=== PATIENT | female | born 1960 | race Caucasian/White ===

== ENCOUNTER 2016-09-18 08:00 | Day surgery (SDC) | payer BC ==
[~2016-09-18 08:00] MED LIST: Lactated Ringers 1,000 ML IV SCH; Simethicone Drops 40 MG/0.6 ML 30 ML Bottle ONE
[2016-09-18] MEDS ORDERED: Simethicone Drops 40 MG/0.6 ML 30 ML Bottle ONE (08:50)
[2016-09-18] MEDS ORDERED: Propofol 200 MG/20 ML SDV ONE ×2 (09:19→09:20)
[2016-09-18 11:26] VITALS: BP 128/94
--- NOTE | 2016-09-18 12:51 | HP ---
CHIEF COMPLAINT: Intermittent constipation and diarrhea. HISTORY OF PRESENT ILLNESS: Ms. Yanci Herr is a 56-year-old female, who I evaluated in June for intermittent, some lower abdominal pain and some constipation mixed with diarrhea. This has been going on for some time. We had planned to do a colonoscopy earlier, but she had several months where she had some upper respiratory tract infection. She now is healthy. Since I saw her in June, she states that she has had no additional change to her current medication list which includes Wellbutrin, omeprazole, estrogen, erythromycin, some gels, loratadine, and MiraLax. She has also had no change in these episodes and she at no time has had bloody stools. Significant in her history is she has had multiple abdominal procedures to include 2 laparoscopies for endometriosis, a cholecystectomy, total abdominal hysterectomy, and she had an umbilical hernia repair which resulted in a bowel resection. Of note, I reviewed the CT scan, it appears that this was small- bowel as her colon appears to be totally intact. SOCIAL HISTORY: No change. REVIEW OF SYSTEMS: She has had no upper respiratory tract infection now for a month. She states that she has had no history of cardiac disease, chest pain. She has had no change in abdominal pain other than what I described in my HPI. No history of DVT or bleeding problems since I saw her. PHYSICAL EXAMINATION: General: GCS is 15. HEENT: Pupils equal. Neck: Without mass. Lungs: Clear. Heart: Rhythm is regular. Abdomen: Soft. Ankles: Free of edema. IMPRESSION AND PLAN: Indeed this patient is a candidate for colonoscopy. I clearly discussed the risks to include, but not limited to bleeding, infection, heart attack, , injury to structures not intended, specifically perforating the bowel. She is well aware of that risk as that happened to her father when he had his colonoscopy. We also discussed a complete colonoscopy, it entails that we get completely to the right side due to the fact that she has had multiple previous surgeries and pelvic surgeries as well as 4 pregnancies. There is higher risk that we could not be successful in that, if we are not, I stated that we could proceed to a barium enema. She understands these risks and benefits and wishes to proceed. All questions were answered and she understands that for the rest of that day she should not engage in any sort of business transactions or driving. [facility] /[id number]
--- NOTE | 2016-09-18 13:49 | OR ---
DATE: 09/18/2016 PREOPERATIVE DIAGNOSIS: Intermittent constipation and diarrhea, but no bloody stool. POSTOPERATIVE DIAGNOSIS: Tortuous left colon with hemorrhagic cyst, 3 cm area on the right colon, probably in the upper. PROCEDURE: Colonoscopy with biopsy of the hemorrhagic area. ANESTHESIA: IV sedation. COMPLICATIONS DURING THE PROCEDURE: The patient had an episode of vigorous coughing to the point where we almost had to abort the procedure, but with some additional anesthesia and oxygen, we continued with some intermittent additional coughing. The patient was brought to the operating room. IV sedation was begun and a time- out was performed. She was placed on her left side down. On perianal exam, she does have a single, non ulcerated skin tag. Rectal exam, there was no mass. I then began the process of passing the scope and clearly, she has a very tortuous colon which was documented in her previous colonoscopies. There was probably 4 or 5 different right angle turns in order to get the scope into the transverse colon. Interesting enough, when I got into the transverse colon which took a bit of time, she had a vigorous coughing spell such that we almost had to abort. Additional sedation was begun and I must say, I saw this suspicious area of an ulcerated lesion and as I am looking at my pictures here, it is concerning. What I simply did was did a biopsy of this area only. With some difficulty, I got to the ileocecal valve and again, this looked okay, it was just that 1 spot. Now having said that, I believe, I am not going to say I am 100% sure that is the spot that I biopsied, but there was I did biopsy a spot similar and that I think that is the only one. On retracting the scope the rest of the way, I did not see any other polyps or pathology. The plan will be I want to see her when I come back for the biopsy of the specimen. Because now on looking at pictures, it looks a little more suspicious. For sure, she is going to need a repeat colonoscopy within 6 months depending no matter what that polyp is, because again I do not really liked how this thing looked. I will discuss this and show the pictures with the family and go from there. She tolerated the procedure moderately well. The bowel prep was good. [facility] /[id number]
[2016-09-18] MEDS ORDERED: Propofol 200 MG/20 ML SDV IV ONE (14:26)
[2016-09-18] MEDS ORDERED: Lidocaine 1% 30 ML SDV INJECT ONE (14:27)
[2016-09-18] MEDS ORDERED: Ondansetron 4 MG/2 ML SDV IV ONE (14:27)
[2016-09-18] MEDS ORDERED: Lactated Ringers 1,000 ML IV ONE (14:27)
== END 2016-09-18 11:30 | disposition home or self-care (01) ==
LOC: DL.ENDO 08:00
PROVIDERS: ATTEND Surgery
DX: R23.3 Spontaneous ecchymoses (principal); Z88.0 Allergy status to penicillin; Z88.1 Allergy status to other antibiotic agents; Z88.2 Allergy status to sulfonamides; Z88.8 Allergy status to other drugs, medicaments and biological substances
CPT/HCPCS: 45380; A9270; J2405; J2704; J7120

== ENCOUNTER 2016-11-14 16:04 | Emergency (ER) | payer BC ==
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
[2016-11-14] MEDS ORDERED: Iopamidol 612 MG/ML 100 ML Bottle IVPUSH ONE (16:19)
[2016-11-14 16:20] VITALS: BP 155/81
[2016-11-14] MEDS ORDERED: Ondansetron 4 MG/2 ML SDV IV ONE ×2 (16:20→19:08)
[2016-11-14] MEDS ORDERED: Sodium Chloride 0.9% 1,000 ML IV ONE (16:20)
[2016-11-14] MEDS ORDERED: HYDROmorphone 1 MG/ML Syringe IVPUSH ONE ×2 (16:20→19:08)
[2016-11-14] MEDS: Sodium Chloride 0.9% 10 ML Syringe FLUSH PRN ×2 (16:35→19:41)
[2016-11-14 16:53] LABS: CHLORIDE,CL 103 mmol/L (101-111); SODIUM,NA 136 mmol/L (135-145)
--- NOTE | 2016-11-14 18:03 | CT ---
Clinical history: 56-year-old female abdominal pain associated with colonoscopy (one week ago). Prev ious hysterectomy surgery this patient who presented at the emergency department with "much worse" a bdominal pain today. Scan technique: Volume acquisition of data emergency CT scan abdomen and pelvis obtained without ora l contrast but during the intravenous administration 100 cc nonionic Isovue contrast while patient w as lying supine on the Siemens multi slice CT scanner [facility]. All data archived in the PACS system for storage, reformatting and study. Interpretation: 1. *Fluid-filled loops of small intestine line with a few scattered air-fluid levels indicating alexei roenteritis or early SBO. 2. No sign of colonic perforation, mechanical large bowel obstruction, inflammatory "dirty" peritone al fat, ascites or free air. 3. Surgical clips gallbladder fossa. Liver (tiny cyst), stomach, spleen, pancreas, adrenal glands an d kidneys unremarkable. 4. Normal cardiac silhouette. Lung bases clear. Normal caliber aortoiliac vessels. Surgically absent uterus/ovaries. 5. No ventral wall defects but there is suggestion of infraumbilical bowel adhesion anterior abdomin al wall. Clinical? CONCLUSION: Suggestion of early small bowel obstruction (probable post operative adhesion anterior a bdominal wall). Cholecystectomy. No abdominal mass lesion, ascites or free intraperitoneal air i.e. No sign of bowel perforation.
--- NOTE | 2017-01-05 08:33 | EKG ---
11/14/2016- LUCERO BRUMFIELD - EKG done on a 56-year-old female showing sinus rhythm with normal axis, heart rate of 77 beats per minute. Normal intervals. No acute ST wave changes. [facility] /[id number]
== END 2016-11-14 19:54 ==
LOC: DL.ED 16:04
DX: K56.60 Unspecified intestinal obstruction (principal); H54.7 Unspecified visual loss; K21.9 Gastro-esophageal reflux disease without esophagitis; F32.9 Major depressive disorder, single episode, unspecified; E66.9 Obesity, unspecified; Z88.1 Allergy status to other antibiotic agents; Z88.5 Allergy status to narcotic agent; Z88.8 Allergy status to other drugs, medicaments and biological substances; Z88.0 Allergy status to penicillin; Z88.2 Allergy status to sulfonamides; Z91.048 Other nonmedicinal substance allergy status; Z79.899 Other long term (current) drug therapy; Z90.49 Acquired absence of other specified parts of digestive tract; Z90.710 Acquired absence of both cervix and uterus; Z98.890 Other specified postprocedural states
CPT/HCPCS: 36415; 74177; 80053; 81001; 82150; 83690; 84484; 85025; 93005; 96361; 96374; 96375; 96376; 99285; J1170; J2405; J7030; J7050; Q9967

== ENCOUNTER 2017-06-01 12:14 | Emergency (ER) | payer BC ==
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
[2017-06-01] MEDS ORDERED: Lactated Ringers 1,000 ML IV ONE (12:31)
[2017-06-01] MEDS ORDERED: Sodium Chloride 0.9% 10 ML Syringe FLUSH PRN (12:31)
[2017-06-01] MEDS ORDERED: HYDROmorphone 1 MG/ML Syringe IVPUSH ONE (12:32)
[2017-06-01] MEDS ORDERED: Iopamidol 612 MG/ML 75 ML Bottle IVPUSH ONE (12:32)
[2017-06-01] MEDS ORDERED: Ondansetron 4 MG/2 ML SDV IV ONE (12:32)
[2017-06-01 14:13] VITALS: BP 92/42
== END 2017-06-01 14:45 | disposition home or self-care (01) ==
LOC: DL.ED 12:14
DX: A09 Infectious gastroenteritis and colitis, unspecified (principal); K21.9 Gastro-esophageal reflux disease without esophagitis; F32.9 Major depressive disorder, single episode, unspecified; Z79.899 Other long term (current) drug therapy; Z88.5 Allergy status to narcotic agent; Z88.0 Allergy status to penicillin; Z88.1 Allergy status to other antibiotic agents; Z88.2 Allergy status to sulfonamides; Z88.8 Allergy status to other drugs, medicaments and biological substances; Z91.048 Other nonmedicinal substance allergy status; Z91.018 Allergy to other foods
CPT/HCPCS: 36415; 74177; 80053; 81001; 82150; 83605; 83690; 85025; 87045; 87046; 87493; 87899; 96361; 96374; 96375; 99284; J1170; J2405; J7050; J7120; Q9967

== ENCOUNTER 2018-12-20 07:57 | Day surgery (SDC) | payer BC ==
[~2018-12-20 07:57] MED LIST changes: +Benzocaine 20% Topical Spray UD MUCMEM ONE; +Dextrose 5%-0.45% NaCl 1,000 ML IV SCH; -Lactated Ringers 1,000 ML IV SCH; +Midazolam 1 MG/ML 2 ML SDV ONE; -Simethicone Drops 40 MG/0.6 ML 30 ML Bottle ONE; +fentaNYL 100 MCG/2 ML SDV ONE
[2018-12-20] MEDS ORDERED: Midazolam 1 MG/ML 2 ML SDV IV ONE ×7 (07:58→08:59)
[2018-12-20] MEDS ORDERED: fentaNYL 100 MCG/2 ML SDV IV ONE ×4 (07:58→09:15)
--- NOTE | 2018-12-20 11:37 | OR ---
DATE: 12/20/2018 PREOPERATIVE DIAGNOSIS: Gastroesophageal reflux disease and epigastric abdominal pain. PREOPERATIVE DIAGNOSIS: Gastroesophageal reflux disease and epigastric abdominal pain. PROCEDURE: Esophagogastroduodenoscopy with photograph and biopsy for Helicobacter pylori and for permanent section. ANESTHESIA: Conscious sedation with IV Versed and fentanyl. SPECIMEN: Gastric biopsy and H. pylori biopsy. OPERATIVE FINDINGS: Small 1 cm hiatal hernia with slight distal esophageal erosion and gastritis. RECOMMENDATION: Awaiting pathology results for H. pylori and permanent section for gastritis. Would continue just medical therapy for her GERD symptoms. PROCEDURE IN DETAIL: After adequate preparation, a gastroscope was inserted into the esophagus. This was passed down to the distal esophagus. She does show some eversion of the gastric mucosa into the esophagus and has a small 1 cm hiatal hernia. No significant distal pathology, however. The scope was advanced into the stomach. Both forward and retroflexed views were done. She appears to have some distal streaking of the antrum and pre-pyloric area. Two biopsies of these were taken, one for H. pylori and one for permanent section. The scope was advanced through the pylorus and the first and second parts of the duodenum were normal. On withdrawal of the scope, air was suctioned from the stomach and the scope removed. [facility] /[id number]
[2018-12-20 12:38] VITALS: BP 124/86
--- NOTE | 2018-12-20 13:38 | OR ---
DATE: 12/20/2018 PREOPERATIVE DIAGNOSIS: Personal history of prior colon polyps with questionable carcinoma and colon resection. ANESTHESIA: Conscious sedation with IV Versed and fentanyl. SPECIMEN: None. OPERATIVE FINDINGS: Normal colonoscopy. RECOMMENDATION: Followup colonoscopy in 10 years for screening for polyps. INDICATION FOR PROCEDURE: This 58-year-old female presented to [facility] this week for evaluation of a followup colonoscopy. She apparently had a colonoscopy two or so years ago that showed a questionable mass. She was sent to [facility]. They repeated the colonoscopy, but did not find a mass. For some reason, this patient thinks they went ahead and operated and took out part of what she thought was the colon; however, on colonoscopy today, I do not see any evidence at all of colon resection. She has had partial small bowel resection. PROCEDURE IN DETAIL: After adequate preparation, a colonoscope was inserted into the rectum. This was easily passed all the way to the cecum. Confirmation of the cecum was made by visualization of the ileocecal valve and the light shining through the right lower quadrant. The bowel prep was good. On withdrawal of the scope, no abnormalities were noted. She has no adenomatous growth, polyps, colitis, diverticulosis, and I could not find any evidence of prior colon resection. Rectal and anal examination was normal. Air was suctioned from the colon and the scope removed. [facility] /[id number]
== END 2018-12-20 11:30 | disposition home or self-care (01) ==
LOC: DL.ENDO 07:57
PROVIDERS: ATTEND Surgery
DX: Z12.11 Encounter for screening for malignant neoplasm of colon (principal); Z86.010 Personal history of colon polyps
CPT/HCPCS: 43239; 45378; 87077; J2250; J3010; J7042; G0121

== ENCOUNTER 2020-04-18 18:17 | Emergency (ER) | payer BC ==
[2020-04-18 20:02] VITALS: BP 139/64; PULSE 74
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
[2020-04-18] MEDS ORDERED: Tetracaine HCl/PF 0.5% 4 ML Bottle EYEBOTH ONE (20:22)
[2020-04-18] MEDS ORDERED: Fluorescein 1 MG Ophth Strip EYEBOTH ONE (20:23)
[2020-04-18] MEDS ORDERED: Dexamethasone/Neomycin/Polymyxin B Ophth Oint 3.5 GM Tube EYERT ONE (20:58)
== END 2020-04-18 21:19 | disposition home or self-care (01) ==
LOC: DL.ED 18:17
DX: S05.01XA Injury of conjunctiva and corneal abrasion without foreign body, right eye, initial encounter (principal); I10 Essential (primary) hypertension; K21.9 Gastro-esophageal reflux disease without esophagitis; F32.9 Major depressive disorder, single episode, unspecified; E66.9 Obesity, unspecified; Z88.5 Allergy status to narcotic agent; Z88.8 Allergy status to other drugs, medicaments and biological substances; Z88.0 Allergy status to penicillin; Z91.041 Radiographic dye allergy status; Z88.2 Allergy status to sulfonamides; Z79.899 Other long term (current) drug therapy; Z68.31 Body mass index [BMI] 31.0-31.9, adult; X58.XXXA Exposure to other specified factors, initial encounter
CPT/HCPCS: 99283; A9270

== ENCOUNTER 2020-05-18 22:59 | Emergency (ER) | payer BC ==
[2020-05-18] MEDS ORDERED: Dexamethasone 6 MG TABLET PO ONE (23:00)
[2020-05-19 01:03] VITALS: BP 114/91; PULSE 104
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
[2020-05-19] MEDS ORDERED: Dexamethasone 6 MG TABLET ONE (03:04)
[2020-05-19 07:49] LABS: SODIUM,NA 135 mmol/L (138-146)
[2020-05-19 07:50] LABS: ANION GAP 13.2 mEq/L (7-13); CHLORIDE,CL 99 mmol/L (98-109)
== END 2020-05-19 03:15 | disposition home or self-care (01) ==
LOC: DL.ED 22:59
DX: U07.1 COVID-19 (principal); I10 Essential (primary) hypertension; K21.9 Gastro-esophageal reflux disease without esophagitis; G62.9 Polyneuropathy, unspecified; E66.9 Obesity, unspecified; Z68.31 Body mass index [BMI] 31.0-31.9, adult; Z88.1 Allergy status to other antibiotic agents; Z88.5 Allergy status to narcotic agent; Z88.8 Allergy status to other drugs, medicaments and biological substances; Z88.0 Allergy status to penicillin; Z91.018 Allergy to other foods; Z88.2 Allergy status to sulfonamides; Z79.899 Other long term (current) drug therapy
CPT/HCPCS: 36415; 80053; 84484; 85025; 85379; 87081; 87430; 87635; 87804; 99285; J8540; 99283; U0002

== ENCOUNTER 2024-07-05 01:21 | Inpatient (IN) | payer MEDICARE, BC ==
[2024-07-05] MEDS: Dicyclomine 10 MG Cap PO ONE (02:02)
[2024-07-05 02:06] LABS: BASOPHILS PERCENT AUTO 0.1 % (0.0-1.0); EOSINOPHILS PERCENT AUTO 1.1 % (1.0-3.0); HEMATOCRIT 40.3 % (37.0-47.0); HEMOGLOBIN 13.4 g/dL (12.0-16.0); LYMPHOCYTES PERCENT AUTO 16.3 % (20.5-50.1); MEAN CORPUSCULAR HEMOGLOBIN 30.6 pg (27.0-34.0); MEAN CORPUSCULAR HGB CONC 33.3 g/dL (33.0-35.0); MONOCYTES PERCENT AUTO 5.5 % (2-8); PLATELET COUNT,PLT 265 10^3/uL (150-450); RED BLOOD CELL COUNT 4.38 10^6/uL (4.2-5.4); WHITE BLOOD CELL COUNT,WBC 10.3 10^3/uL (5.0-10.0)
[2024-07-05] MEDS: Iopamidol 612 MG/ML 100 ML Bottle IVPUSH ONE (02:08)
[2024-07-05 02:23] LABS: A/G RATIO 0.9; ALANINE AMINOTRANSFERASE,ALT 57 U/L (14-59); ALBUMIN 3.4 g/dL (3.4-5.0); ALKALINE PHOSPHATASE 78 U/L (46-116); ANION GAP 13.1 mEq/L (7-13); ASPARTATE AMNIOTRANSFERASE,AST 36 U/L (15-37); BILIRUBIN TOTAL 0.3 mg/dL (0.2-1.0); BLOOD UREA NITROGEN,BUN 17 mg/dL (7-18); BUN/CREATININE RATIO 15.6 (No establ ref range); CALCIUM 8.9 mg/dL (8.5-10.1); CARBON DIOXIDE,CO2 30 mmol/L (21-32); CHLORIDE,CL 101 mmol/L (98-107); CREATININE 1.09 mg/dL (0.55-1.02); GLUCOSE RANDOM 132 mg/dL (70-99); LIPASE 33 U/L (16-77); POTASSIUM,K 4.1 mmol/L (3.5-5.1); SODIUM,NA 140 mmol/L (136-145)
[2024-07-05 02:24] LABS: ESTIMATED GFR 56 mL/min (>=60)
[2024-07-05 03:37] LABS: APPEARANCE,URINE CLEAR (CLEAR); BILIRUBIN,URINE NEGATIVE (NEGATIVE); COLOR,URINE YELLOW (YELLOW); GLUCOSE,URINE NEGATIVE (NEGATIVE); KETONES,URINE NEGATIVE (NEGATIVE); LEUKOCYTE ESTERASE,URINE NEGATIVE (NEGATIVE); NITRITE,URINE NEGATIVE (NEGATIVE); OCCULT BLOOD,URINE NEGATIVE (NEGATIVE); PH,URINE 5.5 (5.0-9.0); PROTEIN,URINE NEGATIVE (NEGATIVE); UROBILINOGEN,URINE 0.2 mg/dL (0.2-1.0)
[2024-07-05 04:46] LABS: LACTIC ACID 1.6 mmol/L (0.4-2.0)
[2024-07-05] MEDS: Ondansetron 4 MG/2 ML SDV IVPUSH ONE (05:21)
[2024-07-05] MEDS: Lidocaine 2% Viscous Solution 15 ML UD PO ONE (05:44)
[2024-07-05] MEDS: Lidocaine 2% Viscous Solution 15 ML UD ONE (05:45)
[2024-07-05] MEDS ORDERED: ERYTHROMYCIN TOP PRN (06:03)
[2024-07-05] MEDS ORDERED: [UNRECOGNIZED DRUG - OTHER] TOP PRN (06:03)
[2024-07-05] MEDS ORDERED: Ketorolac 30 MG/ML SDV IM PRN (06:07)
[2024-07-05] MEDS ORDERED: Acetaminophen/HYDROcodone 325-5 MG Tab PO PRN (06:07)
[2024-07-05] MEDS ORDERED: Acetaminophen 325 MG Tab PO PRN (06:07)
[2024-07-05] MEDS ORDERED: HYDROmorphone 0.5 MG/0.5 ML Syringe IVPUSH PRN (06:10)
[2024-07-05] MEDS ORDERED: Lactated Ringers 1,000 ML IV SCH (06:15)
[2024-07-05] MEDS: Benzocaine 20% Topical Spray UD MUCMEM ONE (06:22)
[2024-07-05] MEDS: Ondansetron 4 MG in Sodium Chloride 0.9% 50 ML IV ONE (06:22)
[2024-07-05] MEDS: Lactated Ringers 1,000 ML IV SCH (07:45)
[2024-07-05] MEDS ORDERED: Non-Formulary Medication 1 Each (Oxcarbazepine 150 MG Tablet) PO SCH (09:00)
[2024-07-05] MEDS ORDERED: Ketorolac 30 MG/ML SDV IVPUSH PRN (09:17)
[2024-07-05] MEDS: DULoxetine 30 MG Cap PO SCH (11:07)
[2024-07-05] MEDS: Ondansetron 4 MG/2 ML SDV IVPUSH PRN (11:07)
[2024-07-05] MEDS: OXcarbazepine 300 MG Tab PO SCH ×2 (11:08→21:09)
[2024-07-05] MEDS: Enoxaparin 40 MG/0.4 ML Syringe SUBCUT SCH (11:08)
[2024-07-05] MEDS: Ketorolac 30 MG/ML SDV IVPUSH PRN (14:41)
[2024-07-05] MEDS ORDERED: Albuterol 6.7 GM Inhaler INH PRN (19:31)
[2024-07-05] MEDS ORDERED: Baclofen 10 MG Tab PO PRN (19:31)
[2024-07-06 06:26] LABS: BASOPHILS PERCENT AUTO 0.2 % (0.0-1.0); EOSINOPHILS PERCENT AUTO 4.2 % (1.0-3.0); HEMATOCRIT 37.6 % (37.0-47.0); MEAN CORPUSCULAR HEMOGLOBIN 30.5 pg (27.0-34.0); MEAN CORPUSCULAR HGB CONC 31.9 g/dL (33.0-35.0); MEAN CORPUSCULAR VOLUME 95.7 fL (80-100); MONOCYTES PERCENT AUTO 9.9 % (2-8); NEUTROPHILS PERCENT AUTO 34.7 % (42.2-75.2); PLATELET COUNT,PLT 226 10^3/uL (150-450); RED BLOOD CELL COUNT 3.93 10^6/uL (4.2-5.4); WHITE BLOOD CELL COUNT,WBC 5.8 10^3/uL (5.0-10.0)
[2024-07-06 06:45] LABS: CALCIUM 8.3 mg/dL (8.5-10.1); CREATININE 1.02 mg/dL (0.55-1.02); EST CRCL DRUG DOSING (CG) 41.49 mL/min
[2024-07-06] MEDS: ESTRADIOL 1 MG PO SCH (09:28)
[2024-07-06] MEDS: Non-Formulary Medication 1 Each (Estradiol [Estradiol] 1 MG Tablet) PO SCH (09:39)
[2024-07-06] MEDS ORDERED: Docusate Sodium 100 MG Cap PO PRN (18:33)
[2024-07-07 06:15] LABS: BASOPHILS PERCENT AUTO 0.1 % (0.0-1.0); EOSINOPHILS PERCENT AUTO 3.8 % (1.0-3.0); HEMATOCRIT 35.6 % (37.0-47.0); HEMOGLOBIN 11.9 g/dL (12.0-16.0); LYMPHOCYTES PERCENT AUTO 39.2 % (20.5-50.1); MEAN CORPUSCULAR HEMOGLOBIN 31.3 pg (27.0-34.0); MEAN CORPUSCULAR HGB CONC 33.4 g/dL (33.0-35.0); MEAN CORPUSCULAR VOLUME 93.7 fL (80-100); MONOCYTES PERCENT AUTO 9.8 % (2-8); NEUTROPHILS PERCENT AUTO 47.1 % (42.2-75.2); PLATELET COUNT,PLT 231 10^3/uL (150-450); WHITE BLOOD CELL COUNT,WBC 7.3 10^3/uL (5.0-10.0)
[2024-07-07 06:38] LABS: ANION GAP 8.8 mEq/L (7-13); CALCIUM 8.3 mg/dL (8.5-10.1); CREATININE 0.95 mg/dL (0.55-1.02); EST CRCL DRUG DOSING (CG) 44.55 mL/min; POTASSIUM,K 3.8 mmol/L (3.5-5.1)
[2024-07-07] MEDS ORDERED: Ondansetron 4 MG Tab.DIS PO PRN (20:58)
[2024-07-08 06:12] LABS: BASOPHILS PERCENT AUTO 0.3 % (0.0-1.0); EOSINOPHILS PERCENT AUTO 3.7 % (1.0-3.0); HEMATOCRIT 37.4 % (37.0-47.0); HEMOGLOBIN 12.6 g/dL (12.0-16.0); LYMPHOCYTES PERCENT AUTO 33.7 % (20.5-50.1); MEAN CORPUSCULAR HGB CONC 33.7 g/dL (33.0-35.0); MEAN CORPUSCULAR VOLUME 92.1 fL (80-100); MONOCYTES PERCENT AUTO 8.8 % (2-8); NEUTROPHILS PERCENT AUTO 53.5 % (42.2-75.2); PLATELET COUNT,PLT 238 10^3/uL (150-450); RED BLOOD CELL COUNT 4.06 10^6/uL (4.2-5.4); WHITE BLOOD CELL COUNT,WBC 7.3 10^3/uL (5.0-10.0)
[2024-07-08 06:36] LABS: ANION GAP 11.7 mEq/L (7-13); CALCIUM 8.7 mg/dL (8.5-10.1); CREATININE 1.02 mg/dL (0.55-1.02); EST CRCL DRUG DOSING (CG) 41.49 mL/min; POTASSIUM,K 3.7 mmol/L (3.5-5.1)
[2024-07-08 13:05] VITALS: BP 118/70; PULSE 62
== END 2024-07-08 13:00 | disposition home or self-care (01) | DRG 390 ==
LOC: DL.ED 01:21 → DL.MS 04:50
PROVIDERS: ADMIT Internal Medicine; ATTEND Internal Medicine
PROC: 0D9670Z Drainage of Stomach with Drainage Device, Via Natural or Artificial Opening (ICD-10-PCS; principal; 2024-07-05)
DX: K56.609 Unspecified intestinal obstruction, unspecified as to partial versus complete obstruction (principal); Z96.652 Presence of left artificial knee joint; K21.9 Gastro-esophageal reflux disease without esophagitis; E66.9 Obesity, unspecified; G62.9 Polyneuropathy, unspecified; H54.7 Unspecified visual loss; I10 Essential (primary) hypertension; K52.9 Noninfective gastroenteritis and colitis, unspecified; Z88.5 Allergy status to narcotic agent; Z88.1 Allergy status to other antibiotic agents; G43.909 Migraine, unspecified, not intractable, without status migrainosus; F32.A Depression, unspecified; F15.90 Other stimulant use, unspecified, uncomplicated; Z98.891 History of uterine scar from previous surgery; Z90.710 Acquired absence of both cervix and uterus; Z98.890 Other specified postprocedural states; Z90.49 Acquired absence of other specified parts of digestive tract; Z79.1 Long term (current) use of non-steroidal anti-inflammatories (NSAID); Z79.51 Long term (current) use of inhaled steroids; Z79.2 Long term (current) use of antibiotics; Z79.899 Other long term (current) drug therapy; Z87.440 Personal history of urinary (tract) infections; Z86.16 Personal history of COVID-19; Z90.89 Acquired absence of other organs; Z91.041 Radiographic dye allergy status; Z88.0 Allergy status to penicillin; Z88.8 Allergy status to other drugs, medicaments and biological substances; Z91.018 Allergy to other foods; Z79.82 Long term (current) use of aspirin
CPT/HCPCS: 36415; 43752; 71045; 74177; 80053; 81003; 83605; 83690; 83735; 84484; 85025; 93005; 99285; A9270; Q9967; 74018; 80048; 99223; 99232; 99238; J1650; J1885; J2405; J7120